=== PATIENT | male | born 1965 | race African-American/Black ===

== ENCOUNTER → 2017-09-19 | Outpatient (CLI) | payer OTHER ==
[~2017-09-19] MED LIST: CALC-159 PO; IOHEXOL 180 MG/ML 10 ML VIAL. ONE; LEVO25TA4 PO; LYSI500T3 PO; MELO15TA23 PO; MULT1TAB52 PO; OMEP20CA9 PO; methylPREDNISolone ACETATE 40 MG/ML VIAL. ONE; methylPREDNISolone ACETATE 80 MG/ML VIAL. ONE
--- NOTE | 2017-09-20 00:35 | PAIN ---
DATE OF SERVICE: 09/19/2017 CHIEF COMPLAINT: Neck and left upper extremity pain. 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 Primary complaint is his neck and left shoulder and arm with radiating pain into the left posterior deltoid, posterior tricep, also bicep region and the anterior aspect of the forearm into the hand and fingers with numbness and tingling in both arms and hands, but much worse on the left side. The patient reports it is constant. It is worse at night. It has been keeping him awake from sleep. It awakens him at least 2-3 times a night. Also some low back pain, which keeps him awake as well. The patient reports he has been walking with a walking stick in his right hand and becoming more and more dependent on it. The patient has had some chiropractic treatment in the past as well as some physical therapy recently, which was not significantly helpful for the neck or shoulder pain or low back pain. The patient reports his disability rating from 0-10, 10 being the worst, is a 7 with family, home responsibilities; 10 with recreation and occupation; 8 with social activity; 6 with self-care and 8 with life support activities. The patient did have an MRI scan of the cervical spine showing some multilevel degenerative disease, borderline central canal stenosis at C3-C4, C5-C6, varying degrees of neural foraminal stenosis, most severe at C3-C4 on the left, mild to moderate decreased AP dimension of the spinal cord and the lower cervical spine as well. He has tried hydrocodone as well as [id number] Advil and Motrin as well as Naprosyn which has not significantly decreased the pain, but decreased it by about 25%. The patient has not had prescription for the pain in over a year. The patient reports no loss of motor function, but significant pain, stabbing, shooting into the left arm, into the shoulders bilaterally with sharp pain in the neck as well. This is worse with extension of the spine, has been keeping him from sleeping fairly significantly. The patient does have some pain in the low back, radiating to bilateral lower extremities mostly in the posterior lateral aspect of the thigh and the medial aspect of the lower leg. PAST MEDICAL HISTORY: Significant for cigarette smoking 4-5 a day, continues to smoke. Gastroesophageal reflux, dizziness, headaches, arthritis, depression, previous attempted suicide in the past. PREVIOUS SURGERIES: Include left elbow surgery, appendectomy and right knee arthroscopy. CURRENT MEDICATIONS: Include lysine, multivitamins, calcium, meloxicam, levothyroxine and omeprazole. ALLERGIES: THE PATIENT IS ALLERGIC TO GABAPENTIN, IPRATROPIUM, METHOCARBAMOL, NORTRIPTYLINE, TIZANIDINE AND ALSO TO WATERMELONS. FAMILY HISTORY: Significant for no major medical problems or conditions that he is aware of. SOCIAL HISTORY: The patient does not drink. Smokes about 4-5 cigarettes a day, has for many years. He is , lives with his spouse locally in [place], [place]. He is currently on disability. REVIEW OF SYSTEMS: The patient's review of systems is positive for those items mentioned in history of present illness. All systems reviewed and otherwise negative. It is complete, full and well documented on the patient's chart. PHYSICAL EXAMINATION: VITAL SIGNS: Today, the patient's blood pressure is 158/98, pulse 69, respirations 18, temperature is 98.2 degrees Fahrenheit, height is 6 feet 1 inch, weight is 290 pounds. GENERAL: The patient is awake, alert, oriented, appropriate, has a very pleasant demeanor. HEENT: Shows normocephalic, atraumatic. Extraocular movements are intact, symmetrical. Oral cavity shows mucous membranes moist and pink. Dentition is intact. NECK: Shows anterior throat supple without palpable lymphadenopathy noted. Swallow reflex is symmetrical. CHEST: Shows normal with inspection. Breath sounds are clear to auscultation bilaterally. HEART: Shows S1, S2 clear. No murmurs auscultated. ABDOMEN: Soft, nontender, nondistended. No palpable organomegaly is noted. No rebound or guarding demonstrated. MUSCULOSKELETAL: Back shows spine grossly in the midline, normal-appearing cervical lordotic curvature, thoracic kyphotic curvature and lumbar lordotic curvature. Cervical paraspinous musculature shows symmetrical with inspection, on palpation shows moderate tenderness in the bilateral cervical paraspinous musculature without radiation, without asymmetry, but diffusely tender throughout. The patient shows good rotational motion of the cervical spine, both laterally greater than 45 degrees right and left as well as full extension with some pain reported in the base of the neck and slightly into the left shoulder posteriorly with extension. This is relieved with forward flexion. No pain on the right side. The patient's low back shows normal lordotic curvature. Lumbar paraspinous muscle shows symmetrical without evidence of atrophy or hypertrophy bilaterally, with palpation shows some moderate tenderness diffusely in the middle and lower distribution of paraspinous muscles, but without radiation. Upper extremities show deep tendon reflexes at 2+ in the biceps and triceps tendons. Motor exam is strong with creel cleaner strength rated at 5/5 as is biceps and triceps flexion. The patient's peripheral pulses are 2+, radial distribution. No peripheral edema is noted. No clubbing or cyanosis. Upper extremities are warm and dry to touch, equal in color and appearance. Shoulder shrug is strong and intact without loss of strength and resistance as is abduction of the shoulder to 90 degrees bilaterally without loss of strength on resistance with some pain reported in the base of the neck and the left shoulder with resistance only. Lower extremities show deep tendon reflexes 1+ in the patellar and tendo-calcaneus tendons. Motor exam is strong with 5/5 dorsiflexion, extension, quadriceps and hamstring flexion and are symmetrical. Peripheral pulses are 1+ in the posterior tibial and no peripheral edema noted bilaterally. IMPRESSION: 1. This is a 52-year-old male with long history of neck pain, left upper extremity pain as well as bilateral shoulder pain and low back pain with radicular symptoms both the upper and lower extremities. 2. Cervical spine MRI scan as noted. 3. Arthritis. 4. Gastroesophageal reflux. 5. Cigarette smoking. PLAN: Options were discussed with the patient including conservative medical management, physical therapy, interventional techniques and he would like to pursue interventional techniques. We discussed a cervical epidural steroid injection using description as well as anatomical models to describe the procedure. Risks were then discussed including, but not limited to bleeding, infection, possibility of epidural hematoma, subsequent neurologic compromise, dural puncture headaches, spinal cord and/or nerve damage, side effects of steroid medication and poor results regarding pain control. The patient understands and wished to proceed. The patient to return to the clinic in approximately 2 weeks for a followup, was counseled on return appointment, activity level and side effects to be aware of. DIAGNOSES: Cervical radiculopathy, cervical spinal stenosis, cervical degenerative disk disease. PROCEDURE: Cervical epidural steroid injection, translaminar approach, at the C6-C7 level using C-arm fluoroscopic guidance under sterile prep and drape using local anesthetic. MEDICATIONS INJECTED: A total of 120 mg of Depo-Medrol plus 5 mL of preservative-free normal saline and 2 mL of Isovue for contrast. CONDITION AT DISCHARGE: Stable. The patient tolerated the procedure well, had no complications. BRETT FARMER MD DR: ALIYAH/pedro JOB#: [id number] / [id number]
== END | disposition home or self-care (01) ==
LOC: PNCL 13:04
PROVIDERS: ATTEND Anesthesiology
DX: M50.123 Cervical disc disorder at C6-C7 level with radiculopathy (principal); M48.02 Spinal stenosis, cervical region; F17.200 Nicotine dependence, unspecified, uncomplicated; K21.9 Gastro-esophageal reflux disease without esophagitis; M19.91 Primary osteoarthritis, unspecified site; Z88.8 Allergy status to other drugs, medicaments and biological substances; Z91.018 Allergy to other foods
CPT/HCPCS: 62321; J1030; J1040

== ENCOUNTER 2017-11-16 14:33 | Emergency (ER) | payer OTHER ==
[2017-11-16] MEDS: ONDANSETRON PF 4 MG/2 ML VIAL. IV ×2 (15:36)
[2017-11-16 15:37] LABS: ADD MAN DIFF? NO
[2017-11-16] MEDS: ASPIRIN 325 MG TABLET PO ×2 (15:37)
[2017-11-16] MEDS: IV NORMAL SALINE 1000ML BAG 1,000 ML IV ×2 (15:38)
[2017-11-16 15:44] LABS: BASO % 0 % (0-3); EOS % 0 % (0-3); HEMATOCRIT 42.3 % (39.0-53.0); HEMOGLOBIN 14.4 g/dL (13.0-17.5); LYMPH # 1.3 x10^3/uL (1.0-4.8); LYMPH % 13 % (24-48); MEAN CORPUSCULAR HEMOGLOBIN 27 pg (25-35); MEAN CORPUSCULAR HGB CONC 34 g/dL (31-37); MEAN CORPUSCULAR VOLUME 80 fL (79-100); MONO # 0.7 x10^3/uL (0.0-1.1); MONO % 7 % (0-9); NEUT # 7.8 x10^3uL (1.8-7.7); NEUT % 79 % (31-73); PLATELET COUNT 347 x10^3/uL (140-400); RED CELL DISTRIBUTION WIDTH 15.3 % (11.5-14.5); WHITE BLOOD COUNT 9.8 x10^3/uL (4.0-11.0)
[2017-11-16 15:52] LABS: INR 1.1 (0.8-1.1); PROTHROMBIN TIME PATIENT 13.5 SEC (11.7-14.0)
[2017-11-16 15:53] LABS: PARTIAL THROMBOPLASTIN TIME 31 SEC (24-38)
[2017-11-16 16:15] LABS: ANION GAP 12 (6-14); BLOOD UREA NITROGEN 12 mg/dL (8-26); BUN/CREATININE RATIO 9 (6-20); CALCIUM 9.4 mg/dL (8.5-10.1); CARBON DIOXIDE 25 mmol/L (21-32); CHLORIDE 100 mmol/L (98-107); CREATININE 1.3 mg/dL (0.7-1.3); GFR 69.6; GLUCOSE 140 mg/dL (70-99); POTASSIUM 3.7 mmol/L (3.5-5.1); SODIUM 137 mmol/L (136-145)
[2017-11-16 16:21] LABS: ALBUMIN 4.2 g/dL (3.4-5.0); ALBUMIN/GLOBULIN RATIO 1.1 (1.0-1.7); ALK PHOS 59 U/L (46-116); ALT (SGPT) 21 U/L (16-63); AST (SGOT) 21 U/L (15-37); LIPASE 206 U/L (73-393); TOTAL BILIRUBIN 0.6 mg/dL (0.2-1.0); TOTAL PROTEIN 7.9 g/dL (6.4-8.2)
[2017-11-16 16:23] LABS: TROPONINI < 0.017 ng/mL (0.000-0.055)
[2017-11-16 16:34] LABS: NT-PRO BNP 17 pg/mL (0-124)
[2017-11-16 17:04] LABS: BILIRUBIN,URINE NEGATIVE (NEG); CLARITY,URINE CLEAR; COLOR,URINE YELLOW; GLUCOSE,URINE NEGATIVE (NEG); NITRITE,URINE NEGATIVE (NEG); PH,URINE 7.5; PROTEIN,URINE NEGATIVE (NEG-TRACE); UROBILINOGEN,URINE 0.2 mg/dL (0.2 mg/dL)
[2017-11-16 17:24] LABS: BACTERIA,URINE 0 /HPF (0-FEW); RBC,URINE 0 /HPF (0-2); WBC,URINE 0 /HPF (0-4)
[2017-11-16 18:42] LABS: TROPONINI < 0.017 ng/mL (0.000-0.055)
== END 2017-11-16 19:20 | disposition home or self-care (01) ==
LOC: ER 14:33
DX: R11.2 Nausea with vomiting, unspecified (principal); R07.9 Chest pain, unspecified; F17.200 Nicotine dependence, unspecified, uncomplicated; F41.9 Anxiety disorder, unspecified; F32.9 Major depressive disorder, single episode, unspecified; E05.90 Thyrotoxicosis, unspecified without thyrotoxic crisis or storm; E03.9 Hypothyroidism, unspecified; Z88.8 Allergy status to other drugs, medicaments and biological substances; Z91.018 Allergy to other foods
CPT/HCPCS: 36415; 71045; 80053; 81001; 83690; 83880; 84484; 85025; 85610; 85730; 93005; 96361; 96374; 99285-25; J2405; J7030

== ENCOUNTER 2018-06-27 17:59 | Emergency (ER) | payer OTHER ==
[~2018-06-27] VITALS: Ht 185.4 cm; Wt 77.1 kg
[~2018-06-27 17:59] MED LIST changes: -IOHEXOL 180 MG/ML 10 ML VIAL. ONE; +ONDA4TAB10 SL; -methylPREDNISolone ACETATE 40 MG/ML VIAL. ONE; -methylPREDNISolone ACETATE 80 MG/ML VIAL. ONE
[2018-06-27 18:30] VITALS: BP 186/113
[2018-06-27] MEDS ORDERED: FAMOTIDINE 20 MG/2 ML VIAL IVP ONE (18:30)
[2018-06-27] MEDS ORDERED: IV NORMAL SALINE 1000ML BAG 1,000 ML IV ONE (18:30)
[2018-06-27 18:41] LABS: BASO % 0 % (0-3); EOS % 0 % (0-3); HEMATOCRIT 41.6 % (39.0-53.0); LYMPH # 1.1 x10^3/uL (1.0-4.8); LYMPH % 11 % (24-48); MEAN CORPUSCULAR HEMOGLOBIN 28 pg (25-35); MEAN CORPUSCULAR HGB CONC 34 g/dL (31-37); MEAN CORPUSCULAR VOLUME 82 fL (79-100); MONO # 0.6 x10^3/uL (0.0-1.1); MONO % 6 % (0-9); NEUT # 7.9 x10^3uL (1.8-7.7); NEUT % 82 % (31-73); PLATELET COUNT 341 x10^3/uL (140-400); RED BLOOD COUNT 5.09 x10^6/uL (4.30-5.70); RED CELL DISTRIBUTION WIDTH 15.8 % (11.5-14.5); WHITE BLOOD COUNT 9.7 x10^3/uL (4.0-11.0)
[2018-06-27 18:48] LABS: PROTHROMBIN TIME PATIENT 13.1 SEC (11.7-14.0)
--- NOTE | 2018-06-27 18:54 | PHYS DOC ---
Past Medical History Past Medical History: Anxiety, Depression, GERD, Hypothyroid Past Surgical History: Appendectomy, Other Additional Past Surgical Histo: rt knee, Smoking: Less than 1pk/day Alcohol Use: Occasionally Drug Use: None Adult General Chief Complaint Chief Complaint: NAUSEA/VOMITING/DIARRHA HPI HPI Patient is a 52 year old male who presents to the ED with complaints of nausea and vomiting. States he has had symptoms for the past 2.5 weeks. He also endorses epigastric pain and chills. He states the pain is burning and radiates slightly to the LUQ. He rates the pain as a 10/10. He states the pain and symptoms are constant. He denies diarrhea, constipation, headache, appetite changes and fever. He has not eaten anything in 24 hours. Only drank water and milk. States that he tried cetirizine to help with his symptoms, but this did not help. States the symptoms are worst when he wakes up in the morning and when he drinks anything. Review of Systems Review of Systems Constitutional: Notes chills; Denies fever Eyes: Denies change in visual acuity, redness, or eye pain HENT: Denies nasal congestion or sore throat Respiratory: Denies cough or shortness of breath Cardiovascular: Denies palpitations, Reports epigastric/lower substernal chest pain GI: Notes abdominal pain, nausea, vomiting; Denies bloody stools or diarrhea : Denies dysuria or hematuria Musculoskeletal: Notes back pain; Denies joint pain Integument: Denies rash or skin lesions Neurologic: Denies headache, focal weakness or sensory changes Complete systems were reviewed and found to be within normal limits, except as documented in this note. Family History Family History Father- hypertension Current Medications Current Medications Current Medications Medications (Trade) Dose Ordered Sig/Addis Start Time Stop Time Status Last Admin Dose Admin Famotidine (Pepcid Vial) 20 mg 1X ONCE 06/27/18 18:30 06/27/18 18:41 DC 06/27/18 19:13 20 MG Sodium Chloride 1,000 ml @ 1,000 mls/hr 1X ONCE 06/27/18 18:30 06/27/18 19:29 DC 06/27/18 19:13 1,000 MLS/HR Levothyroxine Omeprazole Allergies Allergies Allergies Coded Allergies Type Severity Reaction Last Updated Verified nortriptyline Allergy Severe high blood pressure 09/19/17 Yes melon Allergy Intermediate 09/19/17 No ipratropium Allergy Unknown Unknown 09/19/17 Yes methocarbamol Allergy Unknown 09/19/17 Yes tizanidine Allergy Unknown Unknown 09/19/17 Yes gabapentin Adverse Reaction Intermediate made him crazy 09/19/17 Yes Physical Exam Physical Exam Constitutional: Well developed, well nourished. HENT: Normocephalic, atraumatic, oropharynx dry, no oral exudates, nose normal. Eyes: Conjunctiva normal, no discharge. Neck: Normal range of motion, no tenderness, supple, no meningismus Cardiovascular: Heart rate regular rhythm, no murmur Lungs & Thorax: Bilateral breath sounds clear to auscultation Abdomen: Soft, epigastric region tender to palpation Skin: Warm, dry, no erythema, no rash. Back: No tenderness, no CVA tenderness. Extremities: No calf tenderness, ROM intact, no edema. Neurologic: Alert and oriented X 3, normal motor function, normal sensory function, no focal deficits noted. Psychologic: Affect normal, judgement normal, mood normal. Current Patient Data Vital Signs Vital Signs Date Time Temp Pulse Resp B/P (MAP) Pulse Ox O2 Delivery O2 Flow Rate FiO2 06/27/18 18:30 92 186/113 (137) 99 Room Air 06/27/18 17:59 98.4 24 98.4 Lab Values Laboratory Tests Test 06/27/18 18:21 06/27/18 20:08 White Blood Count 9.7 x10^3/uL (4.0-11.0) Red Blood Count 5.09 x10^6/uL (4.30-5.70) Hemoglobin 14.0 g/dL (13.0-17.5) Hematocrit 41.6 % (39.0-53.0) Mean Corpuscular Volume 82 fL (79-100) Mean Corpuscular Hemoglobin 28 pg (25-35) Mean Corpuscular Hemoglobin Concent 34 g/dL (31-37) Red Cell Distribution Width 15.8 % (11.5-14.5) H Platelet Count 341 x10^3/uL (140-400) Neutrophils (%) (Auto) 82 % (31-73) H Lymphocytes (%) (Auto) 11 % (24-48) L Monocytes (%) (Auto) 6 % (0-9) Eosinophils (%) (Auto) 0 % (0-3) Basophils (%) (Auto) 0 % (0-3) Neutrophils # (Auto) 7.9 x10^3uL (1.8-7.7) H Lymphocytes # (Auto) 1.1 x10^3/uL (1.0-4.8) Monocytes # (Auto) 0.6 x10^3/uL (0.0-1.1) Eosinophils # (Auto) 0.0 x10^3/uL (0.0-0.7) Basophils # (Auto) 0.0 x10^3/uL (0.0-0.2) Prothrombin Time 13.1 SEC (11.7-14.0) Prothrombin Time INR 1.0 (0.8-1.1) Sodium Level 138 mmol/L (136-145) Potassium Level 3.6 mmol/L (3.5-5.1) Chloride Level 100 mmol/L (98-107) Carbon Dioxide Level 24 mmol/L (21-32) Anion Gap 14 (6-14) Blood Urea Nitrogen 13 mg/dL (8-26) Creatinine 1.4 mg/dL (0.7-1.3) H Estimated GFR (Cockcroft-Gault) 63.9 BUN/Creatinine Ratio 9 (6-20) Glucose Level 181 mg/dL (70-99) H Calcium Level 9.9 mg/dL (8.5-10.1) Magnesium Level 2.2 mg/dL (1.8-2.4) Total Bilirubin 0.6 mg/dL (0.2-1.0) Aspartate Amino Transferase (AST) 25 U/L (15-37) Alanine Aminotransferase (ALT) 31 U/L (16-63) Alkaline Phosphatase 55 U/L (46-116) Creatine Kinase 569 U/L (39-308) H Creatine Kinase MB (Mass) 1.9 ng/mL (0.0-3.6) Creatine Kinase MB Relative Index 0.3 % (0-4) Troponin I Quantitative < 0.017 ng/mL (0.000-0.055) < 0.017 ng/mL (0.000-0.055) UF-Sji-S-Type Natriuretic Peptide 37 pg/mL (0-124) Total Protein 8.5 g/dL (6.4-8.2) H Albumin 4.3 g/dL (3.4-5.0) Albumin/Globulin Ratio 1.0 (1.0-1.7) Lipase 175 U/L (73-393) Laboratory Tests 06/27/18 18:21 Laboratory Tests 06/27/18 18:21 EKG EKG @ 1811, NSR at 75bpm, slight J point elevation in leads V2-V3, no reciprocal changes[] Radiology/Procedures Radiology/Procedures PROCEDURE: CHEST PA & LATERAL PA and lateral chest radiographs 06/27/2018 CLINICAL HISTORY: Chest and epigastric pain. PA and lateral digital radiographs of chest were obtained. Comparison study is dated 11/16/2017. The cardiac silhouette is normal in size. The thoracic aorta is mildly tortuous. Atherosclerotic calcification of the thoracic aorta is seen. No acute pulmonary infiltrate is noted. No pneumothorax or pleural effusion is seen. A linear band of scarring is seen involving the left lower lobe, unchanged. IMPRESSION: No acute abnormality is seen. Electronically signed by: Gurmeet Buchanan MD (06/27/2018 7:18 PM) [facility] Course & Med Decision Making Course & Med Decision Making Mr. Carlos Duran is a 52 year old male who presents with nausea, vomiting, and epigastric pain for the past 2.5 weeks. Pertinent labs and imaging studies were obtained and reviewed. EKG @ 1811 showed NSR at 75bpm with slight J point elevation in leads V2-V3 and no reciprocal changes. 2-view chest Xray showed no acute process. Creatinine slightly elevated (1.4) which is baseline per [facility] review from prior labs (1.3). Troponin was initially <0.017. CK was found to be elevated possibly due to dehydration. As a result, fluids were administered. Repeat troponin obtained after 2 hours and was also found to be < 0.018. HEART score calculated to be 2, which indicates low cardiac risk. Patient 's symptoms are likely due to gastritis vs. esophagitis. Patient given famotidine and a GI cocktail. Patient will schedule a follow-up upper and lower GI endoscopy. Patient stable for discharge with outpatient follow-up with PCP. Discussed findings and plan with patient, who acknowledges understanding and agreement. Dragon Disclaimer Dragon Disclaimer This electronic medical record was generated, in whole or in part, using a voice recognition dictation system. Departure Departure Impression: Primary Impression: Epigastric pain Disposition: 01 HOME, SELF-CARE Condition: STABLE Referrals: NO PCP (PCP) SABINA FREEMAN MD Patient Instructions: Abdominal Pain, Child, Gastritis, Adult, [id number] Scripts Sucralfate (CARAFATE) 1 Gm/10 Ml Oral.susp 10 ML PO QID, #1200 ML Prov: TEVIN ROBERTSON DO 06/27/18 Famotidine (PEPCID) 20 Mg Tablet 20 MG PO BID, #20 TAB Prov: TEVIN ROBERTSON DO 06/27/18 TEVIN ROBERTSON DO Jun 27, 2018 18:54
[2018-06-27 18:56] LABS: CALCIUM 9.9 mg/dL (8.5-10.1); CREATININE 1.4 mg/dL (0.7-1.3); GFR 63.9; POTASSIUM 3.6 mmol/L (3.5-5.1)
[2018-06-27 19:00] LABS: ALBUMIN 4.3 g/dL (3.4-5.0); MAGNESIUM 2.2 mg/dL (1.8-2.4); TOTAL BILIRUBIN 0.6 mg/dL (0.2-1.0); TOTAL PROTEIN 8.5 g/dL (6.4-8.2)
--- NOTE | 2018-06-27 19:21 | RAD ---
PA and lateral chest radiographs 06/27/2018 CLINICAL HISTORY: Chest and epigastric pain. PA and lateral digital radiographs of chest were obtained. Comparison study is dated 11/16/2017. The cardiac silhouette is normal in size. The thoracic aorta is mildly tortuous. Atherosclerotic calcification of the thoracic aorta is seen. No acute pulmonary infiltrate is noted. No pneumothorax or pleural effusion is seen. A linear band of scarring is seen involving the left lower lobe, unchanged. IMPRESSION: No acute abnormality is seen. Electronically signed by: Gurmeet Buchanan MD (06/27/2018 7:18 PM) [facility]
--- NOTE | 2018-06-27 19:24 | EKG ---
[facility] [address] [place] [address] Test Date: 2018-06-27 Test Time: 18:11:38 Pat Name: BARB PORTER Department: Room: Gender: Male Mds Manager: TIMA : [id number] Requested By: TEVIN ROBERTSON Order Number: [id number] Reading MD: Jay Lemus Measurements Intervals [place] Rate: 75 P: 39 HI: 160 QRS: -22 QRSD: 94 T: 38 QT: 382 QTc: 429 Interpretive Statements SINUS RHYTHM LEFTWARD AXIS Electronically Signed On 07-03-2018 10:16:36 CDT by Jay Lemus
[2018-06-27] MEDS ORDERED: SUCR1ORA5 PO (20:54)
[2018-06-27] MEDS ORDERED: FAMO-63 PO (20:54)
== END 2018-06-27 21:10 | disposition home or self-care (01) ==
LOC: ER 17:59
DX: R10.13 Epigastric pain (principal); R11.2 Nausea with vomiting, unspecified; R10.12 Left upper quadrant pain; K21.9 Gastro-esophageal reflux disease without esophagitis; E03.9 Hypothyroidism, unspecified; F17.200 Nicotine dependence, unspecified, uncomplicated; Z88.8 Allergy status to other drugs, medicaments and biological substances; Z91.018 Allergy to other foods; Z90.89 Acquired absence of other organs
CPT/HCPCS: 36415; 71046; 80053; 82553; 83690; 83735; 83880; 84484; 85025; 85610; 93005; 96361; 96374; 99285; J7030; S0028

== ENCOUNTER 2019-01-11 08:09 | Emergency (ER) | payer MEDICAID, MEDICARE, OTHER ==
[~2019-01-11] VITALS: Ht 182.9 cm; Wt 127.0 kg
[~2019-01-11 08:09] MED LIST changes: +FAMO-63 PO; +OMEP20CA10 PO; -OMEP20CA9 PO; +SUCR1ORA5 PO
[2019-01-11] MEDS ORDERED: diphenhydrAMINE 50 MG/ML VIAL IVP ONE (08:45)
[2019-01-11] MEDS ORDERED: DEXAMETHASONE SOD PHOS 20 MG/5 ML VIAL. IV ONE ×2 (08:45→09:00)
--- NOTE | 2019-01-11 08:53 | PHYS DOC ---
Past Medical History Past Medical History: Anxiety, Depression, GERD, Hypothyroid (KATIE PAULINO APRN) Past Surgical History: Appendectomy, Other Additional Past Surgical Histo: rt knee, (KATIE PAULINO APRN) Alcohol Use: Occasionally Drug Use: Marijuana (KATIE PAULINO APRN) Adult General Chief Complaint Chief Complaint: SORE THROAT HPI HPI 53-year-old male presents to ER via POV for complaints of waking this morning and having difficulty breathing as his throat was swollen. Patient reports he has been able to swallow his secretions felt a rattle when he was breathing. He reports his breathing has improved. He reports he feels his sinuses are congested denies any fever, drainage, or ear pressure. Patient denies cough, chest pain or tightness, or N/V. (KATIE PAULINO APRN) Review of Systems Review of Systems Constitutional: Denies fever or chills [] Eyes: Denies change in visual acuity, redness, or eye pain [] HENT: Reports nasal congestion. Reports sore/swollen throat with pain with swallowing- denies pooling of secretions and reports he has drank flds this morning Respiratory: Denies cough or shortness of breath [] Cardiovascular: Denies CP/tightness GI: Denies nausea, vomiting Musculoskeletal: Denies back/neck pain Integument: Denies rash or skin lesions [] Neurologic: Denies headache, focal weakness or sensory changes. Denies dizziness All other systems were reviewed and found to be within normal limits, except as documented in this note. (KATIE PAULINO APRN) Current Medications Current Medications Current Medications Medications (Trade) Dose Ordered Sig/Addis Start Time Stop Time Status Last Admin Dose Admin Dexamethasone Sodium Phosphate (Decadron) 10 mg 1X ONCE 01/11/19 09:00 01/11/19 09:01 DC 01/11/19 08:57 10 MG Diphenhydramine HCl (Benadryl) 50 mg 1X ONCE 01/11/19 08:45 01/11/19 08:48 DC 01/11/19 08:57 50 MG Epinephrine HCl (Adrenalin) 0.15 mg 1X ONCE 01/11/19 10:15 01/11/19 10:17 DC 01/11/19 10:23 0.15 MG (ELIDIA EAGLE MD) Allergies Allergies Allergies Coded Allergies Type Severity Reaction Last Updated Verified nortriptyline Allergy Severe high blood pressure 09/19/17 Yes melon Allergy Intermediate 09/19/17 No ipratropium Allergy Unknown Unknown 09/19/17 Yes methocarbamol Allergy Unknown 09/19/17 Yes tizanidine Allergy Unknown Unknown 09/19/17 Yes gabapentin Adverse Reaction Intermediate made him crazy 09/19/17 Yes (ELIDIA EAGLE MD) Physical Exam Physical Exam Constitutional: Well developed, well nourished, no acute distress, non-toxic appearance. [] HENT: Normocephalic, atraumatic, pharyngeal swelling with uvula not visualized because of the swelling. Unable to visualize tonsils. Pt is able to swallow his secretions. Oropharynx moist, no oral exudates, nose normal. Tender maxillary sinuses- no facial swelling Eyes: Pupils equal, conjunctiva normal, no discharge. [] Neck: Normal range of motion, no tenderness, supple, no stridor. Swelling to bilateral submandibular glands with mild tenderness on palpation. Trachea midline Cardiovascular: Heart rate regular rhythm, no murmur [] Lungs & Thorax: Bilateral breath sounds clear to auscultation. Resp. equal/ nonlabored Skin: Warm, dry, no erythema, no rash. [] Extremities: No tenderness, no cyanosis, no clubbing, ROM intact, no edema. [] Neurologic: Alert and oriented X 3, normal motor function, normal sensory function, no focal deficits noted. [] Psychologic: Affect normal, judgement normal, mood normal. [] (KATIE PAULINO APRN) Current Patient Data Vital Signs Vital Signs Date Time Temp Pulse Resp B/P (MAP) Pulse Ox O2 Delivery O2 Flow Rate FiO2 01/11/19 11:22 68 149/82 (104) 97 Room Air 01/11/19 08:25 98.5 18 98.5 (ELIDIA EAGLE MD) EKG EKG [] (KATIE PAULINO APRN) Radiology/Procedures Radiology/Procedures [] (KATIE PAULINO APRN) Course & Med Decision Making Course & Med Decision Making Following initial exam discussed pt's case and plan of care with Dr. Eagle who came to room for eval of pt with this provider. 0915: On reevaluation patient reports he feels his throat swelling has improved. On re-exam patient has less swelling to posterior throat uvula still swollen to where it is not visualized. Patient is having no pooling of secretions. Clear speech with no muffled voice. Denies shortness of air. Will continue to monitor in ER. 1050: Pt was given dose of 0.15 IM epi as his throat swelling had only minimally changed since initial IV meds. He reports some improvement since epi- on reexamination uvula is visualized and posterior throat is visualized where swelling had been too significant to view prior. Patient is denying any shortness of air and reports swallowing is easier. Vital signs remained stable with heart rate in the 60s O2 sat on room air 99% respirations 16. Discussed additional monitoring since patient had just recently received the epi. Patient is agreeable with continue monitoring. 1135: Reevaluation and patient continues to have pharyngeal swelling with just sm. amt of uvula visualized. Pt is denying SOA, difficulty swallowing, or chest tightness. Pt reports he is feeling much better and feels swelling in his throat much improved. He has no muffled voice and VS remain stable with RA sat. 98-99% during this discussion. Lung sounds are clear bilat. With ongoing pharyngeal swelling admission advised for further monitoring and care. Pt verbalized understanding on benefits of admission however is not wanting to be admitted at this time. Discussed AMA as admission is advised with sxs not resolved. Pt aware of risks of leaving including worsening sxs and . Pt's sister is at bedside during discussion. Dr. Eagle had also re-evaluated pt and agreed with pt's sxs still needing further monitoring and he also discussed admission and AMA with pt. Pt will AMA form and states with any worsening sxs or concerns he would return to ER. Will provide patient with prescription for prednisone and epinephrine pens. Education provided the patient to start prednisone tomorrow and also advised on use of [id number] Benadryl as directed on container. Patient encouraged to hydrate with plenty of water today. Patient is a smoker so smoking cessation was discussed. At time of discussion patient was in no visible distress respirations were equal and nonlabored. (KATIE PAULINO APRN) Course & Med Decision Making Staff Physician Addendum: I was working in the ER during the course of this patient's visit. I was available for consultation as needed, I did briefly evaluate this patient as noted above (ELIDIA EAGLE MD) Dragon Disclaimer Dragon Disclaimer This electronic medical record was generated, in whole or in part, using a voice recognition dictation system. (KATIE PAULINO APRN) Departure Departure Impression: Primary Impression: Left against medical advice Additional Impressions: Angioedema Swelling of throat Disposition: AGAINST MEDICAL ADVICE Referrals: NO PCP (PCP) Patient Instructions: Angioedema, Discharge Against Medical Advice, Smoking Cessation Additional Instructions: Avoid smoking. Over the counter benedryl as directed on container. Plenty of water intake today. You are being provided with a prescription for an Epinephrine pen if your throat swelling worsens use as directed and call 911 for assist. If symptoms worsen or with concerns return as soon as possible to the Emergency Department for further care. Scripts Epinephrine (Epipen) 0.3 Mg/0.3 Ml Auto.injct 0.3 MG IJ PRN PRN for ANAPHYLAXIS, #2 SYR Prov: KATIE PAULINO APRN 01/11/19 Prednisone (PREDNISONE) 50 Mg Tablet 1 TAB PO DAILY, #5 TAB 0 Refills Start tonight and then as prescribed daily Prov: KATIE PAULINO APRN 01/11/19 Problem Qualifiers KATIE PAULINO APRN Jan 11, 2019 08:53 ELIDIA EAGLE MD Jan 23, 2019 18:32
[2019-01-11] MEDS ORDERED: EPINEPHrine 1 MG/ML VIAL IM ONE (10:15)
[2019-01-11 11:22] VITALS: BP 149/82
[2019-01-11] MEDS ORDERED: EPIPEN0.3 MG/0.3 IJ (11:51)
[2019-01-11] MEDS ORDERED: PRED50TA PO (11:51)
== END 2019-01-11 12:02 | disposition left against medical advice (07) ==
LOC: ER 08:09
DX: T78.3XXA Angioneurotic edema, initial encounter (principal); K21.9 Gastro-esophageal reflux disease without esophagitis; E03.9 Hypothyroidism, unspecified; Z88.8 Allergy status to other drugs, medicaments and biological substances
CPT/HCPCS: 96372; 96374; 96375; 99283; J0171; J1100; J1200

== ENCOUNTER 2019-05-28 10:26 | Emergency (ER) | payer OTHER ==
[~2019-05-28] VITALS: Ht 185.4 cm; Wt 128.8 kg
[~2019-05-28 10:26] MED LIST changes: +EPIPEN0.3 MG/0.3 IJ; +PRED50TA PO
[2019-05-28] MEDS ORDERED: ORPHENADRINE CITRATE 60 MG/2 ML VIAL. IM ONE (11:45)
[2019-05-28] MEDS ORDERED: KETOROLAC 60 MG/2 ML VIAL. IM ONE (11:45)
[2019-05-28] MEDS ORDERED: ORPH100T PO (11:46)
[2019-05-28] MEDS ORDERED: PRED50TA PO (11:46)
--- NOTE | 2019-05-28 11:46 | PHYS DOC ---
Past Medical History Past Medical History: Anxiety, Arthritis, Depression, GERD, Hypothyroid, Sciatica, Other Additional Past Medical Histor: CHRONIC BACK PAIN Past Surgical History: Appendectomy, Other Additional Past Surgical Histo: rt knee, Additional Information: 0.25 PPD Alcohol Use: Occasionally Drug Use: Marijuana Adult General Chief Complaint Chief Complaint: BACK PAIN OR INJURY [facility] HPI Patient is a 53 year old AA male who presents to the emergency department via [facility] with complaints of right lower back pain for the last 4 days. Patient reports a history of chronic back pain. He states that this flareup began after he had taken a walk. Patient denies any recent fall or injury. He denies any numbness, tingling, or weakness of lower extremities, he denies any saddle anesthesia. Currently the patient rates his pain a 10 out of 10 on the pain scale, there are no alleviating factors, the pain increases with movement and weightbearing. ROS Patient denies any fever, hematuria, increased urinary frequency, dysuria, abdominal pain, nausea, vomiting, diarrhea, or constipation. He denies any known injury to his back, reports history of chronic back pain. Patient denies any numbness, tingling, or weakness of lower extremities, he denies any saddle anesthesia. All other ROS is neg unless otherwise noted in HPI. Review of Systems Review of Systems See Above Allergies Allergies Allergies Coded Allergies Type Severity Reaction Last Updated Verified nortriptyline Allergy Severe high blood pressure 09/19/17 Yes melon Allergy Intermediate 09/19/17 No ipratropium Allergy Unknown Unknown 09/19/17 Yes methocarbamol Allergy Unknown 09/19/17 Yes tizanidine Allergy Unknown Unknown 09/19/17 Yes gabapentin Adverse Reaction Intermediate made him crazy 09/19/17 Yes Physical Exam Physical Exam See Above Constitutional: Well developed, well nourished, no acute distress, non-toxic appearance, obese. [] HENT: Normocephalic, atraumatic, bilateral external ears normal, nose normal. [] Eyes: conjunctiva normal, no discharge. [] Neck: Normal range of motion, no stridor. [] Lungs & Thorax: Respirations even and unlabored, no retractions, no respiratory distress Skin: Warm, dry, no erythema, no rash. [] Back: Right lumbar paraspinal tenderness to palpation, increased pain with straight leg lift of right leg, no bony deformity or tenderness to palpation Extremities: No cyanosis, no clubbing, ROM intact, no edema. [] Neurologic: Alert and oriented X 3, no focal deficits noted. [] Psychologic: Affect normal, judgement normal, mood normal. [] Current Patient Data Vital Signs Vital Signs Date Time Temp Pulse Resp B/P (MAP) Pulse Ox O2 Delivery O2 Flow Rate FiO2 05/28/19 10:54 98.5 79 19 158/106 (123) 96 Room Air 98.5 EKG EKG [] Radiology/Procedures Radiology/Procedures [] Course & Med Decision Making Course & Med Decision Making Pertinent Labs and Imaging studies reviewed. (See chart for details) dx: Chronic low back pain Patient was given IM Toradol 30 mg, and IM Norflex 60 mg in the emergency department. A prescription is written for prednisone 50 mg by mouth �5 days and Norflex 10 mg by mouth twice a day when necessary. Patient encouraged to follow up with his primary care doctor for further evaluation and treatment of his chronic back pain. Patient also encouraged to follow-up with pain management Dr. Brett Marshall. Patient verbalized an understanding of home care, medications, follow-up, and return to ED instructions and was in agreement with the plan of care. [] Dragon Disclaimer Dragon Disclaimer This electronic medical record was generated, in whole or in part, using a voice recognition dictation system. Departure Departure Impression: Primary Impression: Chronic low back pain with right-sided sciatica Disposition: HOME, SELF-CARE Condition: STABLE Referrals: NO PCP (PCP) BRETT MARSHALL MD Patient Instructions: Back Pain, Adult Additional Instructions: Fill the prescriptions and use them as directed. Activity as tolerated. Recommended follow-up with your primary care doctor or Dr. Brett Marshall for further management and treatment of your chronic back pain. Return to the ER if your symptoms worsen. Scripts Prednisone (PREDNISONE) 50 Mg Tablet 1 TAB PO DAILY for 5 Days, #5 TAB 0 Refills Prov: RAYRAY KEEN APRN 05/28/19 Orphenadrine Citrate (ORPHENADRINE CITRATE) 100 Mg Tablet.er 1 TAB PO BID PRN for PAIN for 10 Days, #20 TAB 0 Refills Prov: RAYRAY KEEN APRN 05/28/19 Problem Qualifiers Primary Impression: Chronic low back pain with right-sided sciatica Back pain laterality: right Qualified Codes: M54.41 - Lumbago with sciatica, right side; G89.29 - Other chronic pain RAYRAY KEEN CHUTE FEEDER May 28, 2019 11:46
[2019-05-28 12:19] VITALS: BP 140/89
== END 2019-05-28 12:19 | disposition home or self-care (01) ==
LOC: ER 10:26
DX: G89.29 Other chronic pain (principal); M54.41 Lumbago with sciatica, right side; K21.9 Gastro-esophageal reflux disease without esophagitis; E03.9 Hypothyroidism, unspecified; F17.200 Nicotine dependence, unspecified, uncomplicated; Z90.89 Acquired absence of other organs; Z88.8 Allergy status to other drugs, medicaments and biological substances
CPT/HCPCS: 96372; 99284; J1885; J2360

== ENCOUNTER 2022-02-11 12:19 | Emergency (ER) | payer OTHER ==
[~2022-02-11] VITALS: Ht 185.4 cm; Wt 128.9 kg
[~2022-02-11 12:19] MED LIST changes: +MULT-445 PO; -MULT1TAB52 PO; -OMEP20CA10 PO; +OMEP20CA16 PO; +ORPH100T PO
[2022-02-11 12:21] VITALS: BP 140/89
[2022-02-11] MEDS ORDERED: KETOROLAC 30 MG/ML VIAL. IM ONE (13:15)
--- NOTE | 2022-02-11 13:16 | PHYS DOC ---
Past Medical History Past Medical History: Anxiety, Arthritis, Depression, GERD, Hypothyroid, Sciatica, Other Additional Past Medical Histor: CHRONIC BACK PAIN/BILATERAL WRIST PAIN Past Surgical History: Appendectomy, Other Additional Past Surgical Histo: rt knee,L ELBOW Smoking Status: Current Every Day Smoker Additional Information: 0.25 PPD Alcohol Use: Occasionally Drug Use: Marijuana General Adult EDM: Chief Complaint: WRIST PAIN HPI: HPI: Patient is a 56-year-old male who presents with bilateral wrist pain. Patient states the pain is chronic he reports the pain is chronic in nature and he has been told in the past that he has carpal tunnel syndrome by an [place]opedist [place]. 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 Patient states that the pain over the past week has been significantly worse and it woke him up out of his sleep frequently in the middle of the night. He reports paresthesias in his fingertips and pain radiating proximally towards his elbow. He had a nerve study done in the past, but they wanted his A1c to come down significantly and reevaluate prior to carpal tunnel release. Patient reports his A1c is now below 7, but he has not contacted his orthopedic doctor since. Patient denies injury or trauma, focal weakness. Review of Systems: Review of Systems: ROS negative or noncontributory except as mentioned in HPI. Heart Score: C/O Chest Pain: No Current Medications: Current Medications Medications (Trade) Dose Ordered Sig/Addis Route PRN Reason Start Time Stop Time Status Last Admin Dose Admin Ketorolac Tromethamine (Toradol 30mg Vial) 30 mg 1X ONCE IM 02/11/22 13:15 02/11/22 13:16 DC 02/11/22 13:14 Allergies: Allergies: Allergies Coded Allergies Type Severity Reaction Last Updated Verified nortriptyline Allergy Severe high blood pressure 09/19/17 Yes ipratropium Allergy Intermediate Unknown 05/28/19 Yes melon Allergy Intermediate 09/19/17 No methocarbamol Allergy Intermediate 05/28/19 Yes tizanidine Allergy Intermediate Unknown 05/28/19 Yes gabapentin Adverse Reaction Intermediate made him crazy 09/19/17 Yes Physical Exam: PE: Constitutional: Well developed, well nourished, no acute distress, non-toxic appearance. HENT: Normocephalic, atraumatic, bilateral external ears normal, nose normal. Eyes: EOMI, conjunctiva normal, no discharge. Neck: Normal range of motion, no stridor. Skin: Warm, dry, no erythema, no rash. Extremities: Positive Phalen's test, negative Tinel's bilaterally, radial pulses 2+ and symmetrical, no cyanosis, no clubbing, ROM intact, no edema. Neurologic: Alert and oriented x4, normal motor function, normal sensory function, no focal deficits noted. Current Patient Data: Vital Signs: Vital Signs Date Time Temp Pulse Resp B/P (MAP) Pulse Ox O2 Delivery O2 Flow Rate FiO2 02/11/22 12:21 98.1 90 17 140/89 (106) 98 Room Air 98.1 Course & Med Decision Making: Course & Med Decision Making Pertinent Labs and Imaging studies reviewed. (See chart for details) Patient is likely having worsening carpal tunnel syndrome and should follow with ortho for further evaluation and management. Discussed use of voltaren gel as well as wrist splints at night. Contact information for a new orthopedic doctor was provided at patient request. Return precautions were also provided. Patient understands and is agreeable to discharge plan. Dragon Disclaimer: DesignWine Disclaimer: This electronic medical record was generated, in whole or in part, using a voice recognition dictation system. Departure Departure Impression: Primary Impression: Bilateral carpal tunnel syndrome Disposition: 01 HOME / SELF CARE / HOMELESS Condition: STABLE Referrals: UNKNOWN PCP NAME (PCP) TARA ALMEIDA Jr. DO Patient Instructions: Carpal Tunnel Syndrome, [id number] Additional Instructions: EMERGENCY DEPARTMENT GENERAL DISCHARGE INSTRUCTIONS Thank you for coming to [facility] Emergency Department (ED) today and trusting us with you care. We trust that you had a positive experience in our Emergency Department. If you wish to speak to the department management, you may call the director at . YOUR FOLLOW UP INSTRUCTIONS ARE FOLLOWS: 1. Follow up with your primary care doctor. If you do not have a primary doctor, please ask for a resource list of physicians or clinics that may be able to assist you with follow up care. 2. The emergency provider has interpreted your imaging studies, if any were ordered. The radiology bioinformatics specialist also reviewed them. If there is a change in the findings, you will be notified in 48 hours when at all possible. 3. If a lab test or culture has been done, your results will be reviewed and you will be notified if you need a change in treatment. 4. Follow instructions verbalized to you and refer to the printouts if needed. ADDITIONAL INSTRUCTIONS AND INFORMATION: 1. Your care today has been supervised by a physician who is specially trained in emergency care. Many problems require more than one evaluation for a complete diagnosis and treatment. We recommend that you schedule your follow up appointment as recommended to ensure complete treatment of you illness or injury. If you are unable to obtain follow up care and continue to have a problem, or if your condition worsens, we recommend that you return to the ED. 2. We are not able to safely determine your condition over the phone nor are we able to give sound medical advice over the phone. For these safety reasons, if you call for medical advice we will ask you to come to the ED for further evaluation. 3. If you have any questions regarding these discharge instructions please call the ED at . SAFETY INFORMATION: In the interest of safety, wellness, and injury prevention; we encourage you to wear your seat belt, if you smoke; quite smoking, and we encourage family to use a protective helmet for bicycling and other sporting events that present an increased risk for head injury. IF YOUR SYMPTOMS WORSEN OR NEW SYMPTOMS DEVELOP, OR YOU HAVE CONCERNS ABOUT YOUR CONDITION; OR IF YOUR CONDITION WORSENS WHILE YOU ARE WAITING FOR YOUR FOLLOW UP APPOINTMENT; EITHER CONTACT YOUR PRIMARY CARE DOCTOR, THE PHYSICIAN WHOSE NAME AND NUMBER YOU WERE GIVEN, OR RETURN TO THE ED IMMEDIATELY. VARGHESE VAZ February 11, 2022 13:16
== END 2022-02-11 13:34 | disposition home or self-care (01) ==
LOC: ER 12:19
DX: G56.03 Carpal tunnel syndrome, bilateral upper limbs (principal); K21.9 Gastro-esophageal reflux disease without esophagitis; E03.9 Hypothyroidism, unspecified; G89.29 Other chronic pain; F17.200 Nicotine dependence, unspecified, uncomplicated; Z88.8 Allergy status to other drugs, medicaments and biological substances; Z91.018 Allergy to other foods
CPT/HCPCS: 96372; 99284; J1885